=== PATIENT | female | born 1980 | race Caucasian/White ===

== ENCOUNTER 2021-04-22 07:44 | Day surgery (SDC) | payer BC ==
[2021-04-22] MEDS ORDERED: fentaNYL 100 MCG/2 ML SDV ONE (07:53)
[2021-04-22] MEDS ORDERED: Midazolam 1 MG/ML 2 ML SDV ONE (07:54)
[2021-04-22] MEDS ORDERED: Propofol 200 MG/20 ML SDV ONE (07:54)
[2021-04-22] MEDS ORDERED: Dextrose 5%-Lactated Ringers 1,000 ML IV SCH (08:30)
[2021-04-22] MEDS ORDERED: Glycopyrrolate 0.2 MG/ML 2 ML SDV IVPUSH ONE (09:15)
[2021-04-22 11:05] VITALS: BP 141/91; PULSE 89
--- NOTE | 2021-04-23 16:15 | OR ---
DATE OF PROCEDURE: 04/22/2021 SURGEON: David Sim MD PREOPERATIVE DIAGNOSES: Dysphagia and heartburn. 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 OPERATIVE PROCEDURES: Esophagogastroduodenoscopy with biopsy of esophagogastric junction. ANESTHESIA: IV sedation. INDICATION FOR PROCEDURE: This is a 40-year-old female undergoing preoperative evaluation for a Fam-en-Y gastric bypass. Her symptoms included some dysphagia with quite a bit of active reflux symptoms. Plan is to proceed with an upper GI endoscopy for evaluation. Potential risks of the procedure including bleeding, infection, perforation, and such were reviewed, and the patient wishes to proceed. DETAILS OF PROCEDURE: The patient was taken to the operating room and placed in a left lateral decubitus position. IV sedation was administered after which the upper GI endoscope was passed orally through the length of the esophagus, into the stomach with retroflexion view of the fundus, thereafter, through the pyloric channel into the proximal duodenum. Findings included normal hypopharynx, larynx, upper esophageal sphincter, and esophageal body. 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 Remainder of stomach and duodenum were unremarkable. At this point, multiple biopsies were obtained from the esophagogastric junction and sent for histologic evaluation. Minimal bleeding from the biopsy sites was seen and the procedure was then concluded. At this point, the patient will be instructed to increase her omeprazole to 20 mg b.i.d. The patient is presently on a once a day dose now and findings today confirmed that the appropriate treatment in this case for her morbid obesity would be Fam-en-Y gastric bypass due to the extensive hiatal hernia and active reflux disease. David Sim MD /[id number]
== END 2021-04-22 11:20 | disposition home or self-care (01) ==
LOC: JP.SDS 07:44
PROVIDERS: ATTEND Surgery
DX: K22.70 Barrett's esophagus without dysplasia (principal); K20.90 Esophagitis, unspecified without bleeding; K44.9 Diaphragmatic hernia without obstruction or gangrene; R13.10 Dysphagia, unspecified; K21.9 Gastro-esophageal reflux disease without esophagitis; E66.01 Morbid (severe) obesity due to excess calories; G47.33 Obstructive sleep apnea (adult) (pediatric); Z68.43 Body mass index [BMI] 50.0-59.9, adult
CPT/HCPCS: 43239; 88305; J2250; J2704; J3010; J3490; J7121

== ENCOUNTER 2021-10-07 07:25 | Inpatient (IN) | payer OTHER ==
[~2021-10-07 07:25] MED LIST: Bupivacaine 0.5% 50 ML MDV ONE; Lidocaine 1% with EPINEPHrine 1:100,000 50 ML MDV ONE; Meropenem 500 MG SDV ONE; cefOXitin 2 GM Vial ONE
[2021-10-07] MEDS ORDERED: Acetaminophen 500 MG Tab PO ONE (08:00)
[2021-10-07] MEDS ORDERED: Scopolamine 1.5 MG Transdermal Patch TOP ONE (08:00)
[2021-10-07] MEDS: Celecoxib 200 MG Cap PO SCH ×2 (08:17→16:09)
[2021-10-07 08:34] LABS: HEMOGLOBIN A1C 5.7 % (4.5-6.2)
[2021-10-07] MEDS ORDERED: Albuterol/Ipratropium 3.0-0.5 MG/3 ML Neb Soln NEB ONE (08:45)
[2021-10-07] MEDS ORDERED: Ondansetron 4 MG/2 ML SDV ONE (08:46)
[2021-10-07] MEDS ORDERED: Propofol 200 MG/20 ML SDV ONE (08:46)
[2021-10-07] MEDS ORDERED: Neostigmine Methylsulfate 1 MG/ML 5 ML Syringe ONE (08:46)
[2021-10-07] MEDS ORDERED: Dexamethasone 4 MG/ML SDV ONE (08:46)
[2021-10-07] MEDS ORDERED: Rocuronium 50 MG/5 ML Vial ONE (08:46)
[2021-10-07] MEDS ORDERED: Glycopyrrolate 0.2 MG/ML 5 ML MDV ONE (08:46)
[2021-10-07] MEDS ORDERED: Succinylcholine 200 MG/10 ML MDV ONE (08:46)
[2021-10-07] MEDS ORDERED: fentaNYL 250 MCG/5 ML SDV ONE ×3 (08:48→12:29)
[2021-10-07] MEDS ORDERED: Dextrose 5%-Lactated Ringers 1,000 ML IV SCH (09:00)
[2021-10-07] MEDS ORDERED: Ketamine 500 MG/5 ML MDV IV SCH (09:15)
[2021-10-07] MEDS ORDERED: Ketamine 14 MG in Sodium Chloride 0.9% 19.86 ML IV SCH (09:15)
[2021-10-07] MEDS ORDERED: cefOXitin 2 GM in Sodium Chloride 0.9% 50 ML IV ONE (10:00)
[2021-10-07] MEDS ORDERED: hydrOXYzine HCL 100 MG/2 ML SDV IM ONE (14:07)
[2021-10-07] MEDS ORDERED: Ondansetron 4 MG/2 ML SDV IVPUSH ONE (14:07)
[2021-10-07] MEDS ORDERED: Glucagon,Human Recombinant 1 MG Vial IM PRN (14:08)
[2021-10-07] MEDS ORDERED: 50% Dextrose in Water 50 ML Syringe IVPUSH PRN (14:08)
[2021-10-07] MEDS ORDERED: Insulin Lispro 100 Unit/ML 3 ML KwikPen SUBCUT ONE (14:08)
[2021-10-07] MEDS ORDERED: Lactated Ringers 1,000 ML ONE (14:22)
[2021-10-07] MEDS ORDERED: Cyclobenzaprine 10 MG Tab PO PRN (15:18)
[2021-10-07] MEDS: Dextrose 5%-Lactated Ringers 1,000 ML IV SCH ×2 (15:31→23:30)
[2021-10-07] MEDS ORDERED: Albuterol/Ipratropium 3.0-0.5 MG/3 ML Neb Soln INH PRN (16:00)
[2021-10-07] MEDS ORDERED: oxyCODONE 5 MG Tab PO PRN (16:00)
[2021-10-07] MEDS ORDERED: Labetalol 20 MG/4 ML Syringe IVPUSH PRN (16:00)
[2021-10-07] MEDS ORDERED: Acetaminophen 500 MG Tab PO PRN (16:00)
[2021-10-07] MEDS ORDERED: hydrOXYzine HCL 100 MG/2 ML SDV IM PRN (16:00)
[2021-10-07] MEDS ORDERED: HYDROmorphone 0.5 MG/0.5 ML Syringe IVPUSH PRN (16:00)
[2021-10-07] MEDS ORDERED: HYDROmorphone 1 MG/ML Syringe IV PRN (16:00)
[2021-10-07] MEDS ORDERED: diphenhydrAMINE 50 MG/ML SDV IVPUSH PRN (16:00)
[2021-10-07] MEDS ORDERED: traMADol 50 MG Tab PO PRN (16:00)
[2021-10-07] MEDS: MVI, Adult with Vitamin K 10 ML, Thiamine 200 MG, Zinc/Copper/Manganese/Selenium 1 ML i... IV SCH ×4 (17:00)
[2021-10-07] MEDS: cefOXitin 2 GM in Sodium Chloride 0.9% 50 ML IV SCH ×2 (17:00→23:30)
[2021-10-07] MEDS: Insulin Lispro 100 Unit/ML 3 ML KwikPen SUBCUT SCH ×2 (17:03→21:57)
[2021-10-07] MEDS: Acetaminophen 500 MG Tab PO SCH ×2 (17:06→23:53)
[2021-10-07] MEDS: Pantoprazole 40 MG Vial IVPUSH SCH (17:06)
[2021-10-07] MEDS: Heparin Sodium 5,000 Units/ML Vial SUBCUT SCH (17:09)
[2021-10-07] MEDS: Albuterol/Ipratropium 3.0-0.5 MG/3 ML Neb Soln INH SCH (20:26)
[2021-10-07] MEDS: Metoclopramide 10 MG/2 ML SDV IVPUSH PRN (20:33)
[2021-10-08] MEDS ORDERED: Iopamidol 612 MG/ML 50 ML SDV PO STA (03:22)
[2021-10-08] MEDS: Insulin Lispro 100 Unit/ML 3 ML KwikPen SUBCUT SCH ×4 (04:57→23:50)
[2021-10-08] MEDS: Heparin Sodium 5,000 Units/ML Vial SUBCUT SCH ×2 (05:27→17:04)
[2021-10-08] MEDS: cefOXitin 2 GM in Sodium Chloride 0.9% 50 ML IV SCH ×4 (05:27→23:49)
[2021-10-08] MEDS: Dextrose 5%-Lactated Ringers 1,000 ML IV SCH (05:28)
[2021-10-08] MEDS: Acetaminophen 500 MG Tab PO SCH ×2 (07:55→16:10)
[2021-10-08] MEDS: Metoclopramide 10 MG/2 ML SDV IVPUSH PRN (07:57)
[2021-10-08] MEDS: Escitalopram 20 MG Tab PO SCH (08:02)
[2021-10-08] MEDS: Cetirizine 10 MG Tab PO SCH (08:02)
[2021-10-08] MEDS: Celecoxib 200 MG Cap PO SCH ×2 (08:02→20:52)
[2021-10-08] MEDS: SCOPOLAMINE PATCH CHECK TOP SCH (08:03)
[2021-10-08] MEDS: buPROPion 150 MG Tab.ER PO SCH (08:03)
[2021-10-08] MEDS ORDERED: [UNRECOGNIZED DRUG - OTHER] TOP SCH (09:00)
[2021-10-08] MEDS: Albuterol/Ipratropium 3.0-0.5 MG/3 ML Neb Soln INH SCH ×4 (09:30→20:37)
[2021-10-08] MEDS: Lactated Ringers 1,000 ML IV SCH (09:58)
[2021-10-08] MEDS: Ondansetron 4 MG/2 ML SDV IVPUSH PRN (12:03)
[2021-10-08] MEDS: MVI, Adult with Vitamin K 10 ML, Thiamine 200 MG, Zinc/Copper/Manganese/Selenium 1 ML i... IV SCH ×4 (16:10)
[2021-10-08] MEDS: Pantoprazole 40 MG Vial IVPUSH SCH (17:03)
[2021-10-09] MEDS: Acetaminophen 500 MG Tab PO SCH ×3 (01:05→16:00)
[2021-10-09] MEDS: Lactated Ringers 1,000 ML IV SCH ×2 (03:19→15:51)
[2021-10-09] MEDS: Insulin Lispro 100 Unit/ML 3 ML KwikPen SUBCUT SCH ×3 (05:25→15:59)
[2021-10-09] MEDS: Heparin Sodium 5,000 Units/ML Vial SUBCUT SCH ×2 (06:02→17:25)
[2021-10-09] MEDS: Albuterol/Ipratropium 3.0-0.5 MG/3 ML Neb Soln INH SCH ×4 (07:18→22:30)
[2021-10-09] MEDS: Metoclopramide 10 MG/2 ML SDV IVPUSH SCH ×3 (08:36→19:20)
[2021-10-09] MEDS: Cetirizine 10 MG Tab PO SCH (08:37)
[2021-10-09] MEDS: Celecoxib 200 MG Cap PO SCH ×2 (08:37→22:30)
[2021-10-09] MEDS: buPROPion 150 MG Tab.ER PO SCH (08:37)
[2021-10-09] MEDS: Escitalopram 20 MG Tab PO SCH (08:37)
[2021-10-09] MEDS: SCOPOLAMINE PATCH CHECK TOP SCH (08:38)
[2021-10-09] MEDS ORDERED: Cyanocobalamin (Vitamin B12) 1,000 MCG/ML SDV IM ONE (09:00)
[2021-10-09] MEDS: Ondansetron 4 MG/2 ML SDV IVPUSH PRN (10:38)
[2021-10-09] MEDS ORDERED: Albuterol/Ipratropium 3.0-0.5 MG/3 ML Neb Soln ONE (11:11)
[2021-10-09] MEDS: Pantoprazole 40 MG Vial IVPUSH SCH (17:24)
[2021-10-10] MEDS: Insulin Lispro 100 Unit/ML 3 ML KwikPen SUBCUT SCH ×5 (00:15→21:55)
[2021-10-10] MEDS: Acetaminophen 500 MG Tab PO SCH ×3 (00:15→15:38)
[2021-10-10] MEDS: Lactated Ringers 1,000 ML IV SCH ×3 (01:52→20:55)
[2021-10-10] MEDS: Metoclopramide 10 MG/2 ML SDV IVPUSH SCH ×4 (01:55→20:51)
[2021-10-10] MEDS: Heparin Sodium 5,000 Units/ML Vial SUBCUT SCH ×2 (06:13→17:36)
[2021-10-10] MEDS: Albuterol/Ipratropium 3.0-0.5 MG/3 ML Neb Soln INH SCH ×4 (07:00→21:02)
[2021-10-10] MEDS ORDERED: Hyoscyamine 0.125 MG Tab.SL SL SCH (07:00)
[2021-10-10] MEDS: Hyoscyamine 0.125 MG Tab.SL SL SCH ×3 (08:20→20:51)
[2021-10-10] MEDS: Bisacodyl 5 MG Tab PO SCH ×2 (08:21→20:44)
[2021-10-10] MEDS: Docusate Sodium 100 MG Cap PO SCH ×2 (08:21→20:44)
[2021-10-10] MEDS: Celecoxib 200 MG Cap PO SCH ×2 (08:21→20:47)
[2021-10-10] MEDS: buPROPion 150 MG Tab.ER PO SCH (08:22)
[2021-10-10] MEDS: Cetirizine 10 MG Tab PO SCH (08:22)
[2021-10-10] MEDS: Escitalopram 20 MG Tab PO SCH (08:22)
[2021-10-10] MEDS: Pantoprazole 40 MG Vial IVPUSH SCH (17:36)
[2021-10-11] MEDS: Acetaminophen 500 MG Tab PO SCH ×2 (01:13→08:15)
[2021-10-11] MEDS: Metoclopramide 10 MG/2 ML SDV IVPUSH SCH ×2 (02:11→07:52)
[2021-10-11] MEDS: Hyoscyamine 0.125 MG Tab.SL SL SCH ×2 (02:11→07:52)
[2021-10-11] MEDS: Insulin Lispro 100 Unit/ML 3 ML KwikPen SUBCUT SCH (04:37)
[2021-10-11] MEDS: Heparin Sodium 5,000 Units/ML Vial SUBCUT SCH (05:39)
[2021-10-11 06:51] VITALS: BP 148/94; PULSE 82
[2021-10-11] MEDS: Albuterol/Ipratropium 3.0-0.5 MG/3 ML Neb Soln INH SCH (07:01)
[2021-10-11] MEDS: Escitalopram 20 MG Tab PO SCH (08:15)
[2021-10-11] MEDS: Celecoxib 200 MG Cap PO SCH (08:15)
[2021-10-11] MEDS: Docusate Sodium 100 MG Cap PO SCH (08:15)
[2021-10-11] MEDS: Bisacodyl 5 MG Tab PO SCH (08:15)
[2021-10-11] MEDS: Cetirizine 10 MG Tab PO SCH (08:16)
[2021-10-11] MEDS: buPROPion 150 MG Tab.ER PO SCH (08:16)
== END 2021-10-11 09:30 | disposition home or self-care (01) | DRG 621 ==
LOC: JP.SDS 07:25 → JP.SDSSCHI 07:25 → EDSTATUS 08:45 → JP.ICU 13:00
PROVIDERS: ADMIT Surgery; ATTEND Surgery
PROC: 0D194ZB Bypass Duodenum to Ileum, Percutaneous Endoscopic Approach (ICD-10-PCS; principal; 2021-10-07)
PROC: 0FB24ZX Excision of Left Lobe Liver, Percutaneous Endoscopic Approach, Diagnostic (ICD-10-PCS; 2021-10-07)
PROC: 0BQT4ZZ Repair Diaphragm, Percutaneous Endoscopic Approach (ICD-10-PCS; 2021-10-07)
DX: E66.01 Morbid (severe) obesity due to excess calories (principal); Z68.43 Body mass index [BMI] 50.0-59.9, adult; G47.33 Obstructive sleep apnea (adult) (pediatric); E11.9 Type 2 diabetes mellitus without complications; F41.1 Generalized anxiety disorder; R16.0 Hepatomegaly, not elsewhere classified; K44.9 Diaphragmatic hernia without obstruction or gangrene; G47.00 Insomnia, unspecified; Z88.1 Allergy status to other antibiotic agents
CPT/HCPCS: 36415; 74240; 74240-26; 81025; 82947; 83036; 86850; 86900; 86901; 88307; 88313; 94640; A9270-GY; C9113; J0171; J0330; J0694; J1100; J1170; J1644; J1815; J2020; J2185; J2405; J2704; J2710; J2765; J2795; J3010; J3410; J3411; J3420; J3490; J7120; J7121; J7620; Q9967